=== PATIENT | female | born 2000 | race Hispanic/Latino ===

== ENCOUNTER 2025-02-17 13:46 | Emergency (ER) | payer SELFPAY ==
[~2025-02-17] VITALS: Ht 167.6 cm; Wt 51.3 kg
--- NOTE | 2025-02-17 14:00 | ERN ---
ED Note History of Present Illness Stated Complaint: ABNORMAL MENSES Chief Complaint: Vaginal Problems/Bleeding Time Seen by MD: 13:53 Dictation: PATIENT IS A 24-YEAR-OLD FEMALE STATES SHE IS HERE FOR HEAVY VAGINAL BLEEDING WITH CRAMPING ONSET WAS YESTERDAY. SHE STATES SHE HAD HER LAST MENSTRUAL PERIOD LAST MONTH ON THE . STATES SHE IS REGULAR, SHE IS SEXUALLY ACTIVE NO CONTROL. NO PRIMARY CARE Allergies: Coded Allergies: No Known Allergies (Unverified Allergy, Unknown, 02/17/25) Past Medical History Past Medical History: No Pertinent History Surgical History: None LMP: Mar 15, 2025 RN Note Reviewed/Agreed w/PFSH: Yes Review of System Dictation CONSTITUTIONAL: Negative except for HPI HEAD/FACE: Negative except for HPI EENT: Negative except for HPI RESPIRATORY: Negative except for HPI GASTROINTESTINAL/ABDOMINAL: Negative except for HPI GENITOURINARY: Negative except for HPI vaginal bleeding MUSCULOSKELETAL: Negative except for HPI INTEGUMENTARY: Negative except for HPI NEUROLOGICAL/PSYCH: Negative except for HPI HEMATOLOGIC/LYMPHATIC: Negative except for HPI All Systems Negative, Except as noted above. 13 point review of systems assessed and all negative except for above. Initial Vital Sign VS Vital Signs Date Time Temp Pulse Resp B/P (MAP) Pulse Ox O2 Delivery O2 Flow Rate FiO2 02/17/25 13:49 98.2 79 16 139/71 100 Room Air 0 02/17/25 14:20 21 Physical Exam Dictation Vital Signs reviewed General Appearance: Alert, oriented x 3, no acute distress, well developed, nourished. Head and Face: non-traumatic. Eyes: PERRL, pink conjunctivas, eyelid no trauma, anterior chamber with arcus senilis. Ears: Pinnas intact and no signs of trauma or erythema ear canals clear and no discharge TM no erythema Nose: No discharge, no bleeding. Oropharynx: Mouth normal, tongue pink, pharynx clear,no erythema, tonsils no exudates, no abscesses noted, mucous membrane moist Neck: Supple, non-tender, no thyromegaly, no masses, no JVD, no bruits Breast:Deferred Chest:No tenderness, no crepitus, no paradoxical movement, no retractions Lungs:Clear, well-ventilated, symmetric, no rales, no wheezing, no rhonchi, no stridor, good breath sounds bilaterally Heart: Regular rate, regular rhythm, no murmur, no gallops Vascular: no peripheral edema, Abdomen: Soft, positive bowel sounds, nondistended, no guarding, nontender, no rebound, no masses no hepatomegaly, no splenomegaly, no Glaser's sign, no hernias. Rectal: Deferred Genital: Deferred Neurological: Normal speech, motor function intact, sensory function intact Musculoskeletal: Neck nontender, full range of motion, back nontender, full range of motion, Extremities: nontender, full range of motion Skin: Color pink, dry, no turgor, no rash, no lacerations, no abrasions, no contusions. Lymphatic: Deferred Results (Laboratory/Radiology) Laboratory/Radiology Laboratory Tests Test 02/17/25 14:08 02/17/25 14:20 White Blood Count 6.1 K/uL (4.8-10.8) Red Blood Count 5.16 MIL/uL (4.00-5.50) Hemoglobin 15.1 g/dL (12.0-16.0) Hematocrit 44.5 % (36-48) Mean Corpuscular Volume 86.2 fL (79-99) Mean Corpuscular Hemoglobin 29.3 pg (27.0-33.0) Mean Corpuscular Hemoglobin Concent 33.9 g/dL (32.0-36.0) Red Cell Distribution Width 12.8 % (11.0-15.5) Platelet Count 288 K/uL (130-400) Mean Platelet Volume 9.5 fL (7.5-10.5) Immature Granulocyte % (Auto) 0.2 % (0-1) Neutrophils (%) (Auto) 63.1 % (40.0-77.0) Lymphocytes (%) (Auto) 26.6 % (21.0-51.0) Monocytes (%) (Auto) 8.9 % (3.0-13.0) Eosinophils (%) (Auto) 1.0 % (0.0-8.0) Basophils (%) (Auto) 0.2 % (0.0-5.0) Neutrophils # (Auto) 3.9 K/uL (1.8-7.7) Lymphocytes # (Auto) 1.6 K/uL (1.0-4.8) Monocytes # (Auto) 0.5 K/uL (0.1-1.0) Eosinophils # (Auto) 0.06 K/uL (0.00-0.70) Basophils # (Auto) 0.01 K/uL (0.00-0.20) Absolute Immature Granulocyte (auto 0.01 K/uL (0-1) Nucleated Red Blood Cells 0.0 % (0.0-0.19) Sodium Level 135 mmol/L (136-145) L Potassium Level 3.6 mmol/L (3.5-5.1) Chloride Level 98 mmol/L (101-111) L Carbon Dioxide Level 29 mmol/L (21-32) Blood Urea Nitrogen 11 mg/dL (7-18) Creatinine 0.6 mg/dL (0.5-1.0) Glomerular Filtration Rate Calc 130 mL/min (>90) Random Glucose 87 mg/dL (70-105) Total Calcium 9.6 mg/dL (8.5-10.1) Urine Color YELLOW (YELLOW) Urine Appearance CLOUDY (CLEAR) H Urine pH 6.0 (5.0-8.0) Urine Specific [place] 1.022 (1.001-1.031) Urine Protein 70 mg/dL (NEGATIVE) H Urine Glucose (UA) NEGATIVE mg/dL (NEGATIVE) Urine Ketones 20 mg/dL (NEGATIVE) H Urine Occult Blood MODERATE (NEGATIVE) H Urine Nitrate NEGATIVE (NEGATIVE) Urine Bilirubin NEGATIVE mg/dL (NEGATIVE) Urine Urobilinogen 0.2 mg/dL (0.2-1.0) Urine Leukocyte Esterase NEGATIVE [place]/uL Urine RBC 2-5 /HPF (0-1) H Urine WBC 2-5 /HPF (0-1) H Urine Squamous Epithelial Cells FEW /HPF (0-2) Urine Bacteria RARE /HPF (None Seen) Urine HCG, Qualitative POSITIVE (NEGATIVE) H 1540/OB ultrasound demonstrate no sac. No ectopic . 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 She will be counseled to avoid alcohol, tobacco no drugs [id number] except for Tylenol and start vitamins until cleared by her stone fabricator doctor. Labs Reviewed?: Yes ED Course ED Course Orders Procedure Category Date Status Time Cbc With Differential LAB 02/17/25 Complete 13:58 ,Urine Test LAB 02/17/25 Complete 13:58 Urinalysis Profile LAB 02/17/25 Complete 13:58 Basic Metabolic Panel LAB 02/17/25 Complete 13:58 Us Ob <14 Weeks US 02/17/25 Taken 14:44 Hcg,Quantitative LAB 02/17/25 Logged 15:17 Vital Signs Date Time Temp Pulse Resp B/P (MAP) Pulse Ox O2 Delivery O2 Flow Rate FiO2 02/17/25 14:20 98.2 79 16 139/71 100 Room Air* 0 21 02/17/25 13:49 98.2 79 16 139/71 100 Room Air 0 Medical Decision Making MDM MDM: Differential diagnosis: UTI/electrolyte imbalance/dehydration/anemia/ectopic Rationale: Tests considered and ordered secondary to shared decision making include: Labs/UA Previous outside records reviewed: Old ER visits. Risk of complication and/or morbidity or mortality of patient management: None Medications-Per medication reconciliation Need for hospitalization: Patient does not meet criteria for hospitalization. No Need for emergency major/minor surgery: No There are no social concerns with this patient. Prescription drug management none Prescriptions will include symptomatic care Patient's prior external medical records from other ER visits were reviewed by me as indicated. Prior testing and results from previous visits were reviewed. Prior tests were taken into account with medical decision making and resource utilization, independent historian/historians were used to obtain complete medical history. I independently interpreted the test that were performed, results were reviewed by me and considered findings on radiology if ordered. Medical management and examination interpretation discussions were had by me with other qualified healthcare professionals as indicated for the patient's care. DX & DISP Disposition: Discharge Departure Impression: Primary Impression: Vaginal bleeding in Condition: Stable Additional Instructions: Follow-up with primary care provider in 1 to 2 days. Take medications as directed here in the emergency room. Okay to continue home medications unless otherwise discussed during your visit in the emergency room today. Return to your nearest emergency room if symptoms worsen or if there is no improvement. Call 911 if you need immediate assistance. Take Tylenol [id number] as needed and if no contraindications are present. Increase oral hydration. A wound culture or urine culture was ordered here in the emergency room department please follow-up with primary care provider and advise them to get repeat ports from our facility. If you had any Darwin wrap/splints that were applied here, please do not remove them until you see your primary care or specialty. Tylenol [id number] for pain. No smoking, no tobacco no [id number] medications he had some Tylenol until cleared by your stone fabricator doctor. Start vitamins/ezru-lnd-[id number] daily with meals. Follow up with a an stone fabricator doctor in the next 1-2 days. Referrals: SELF,REFERRAL (PCP) Time of Disposition: 15:41 I have reviewed the case, and I agree with, Diagnosis and Plan LEA ARAUJO NP Feb 17, 2025 14:00
[2025-02-17 14:19] LABS: IMMATURE GRANULOCYTE ABSOLUTE 0.01 K/uL (0-1); NUCLEATED RED BLOOD CELLS 0.0 % (0.0-0.19); PLATELET COUNT (AUTO) 288 K/uL (130-400); RED BLOOD CELL COUNT(AUTO) 5.16 MIL/uL (4.00-5.50); RED CELL DISTRIBUTION WIDTH 12.8 % (11.0-15.5); WHITE BLOOD COUNT (AUTO) 6.1 K/uL (4.8-10.8)
[2025-02-17 14:32] LABS: CREATININE 0.6 mg/dL (0.5-1.0); GLOMERULAR FILTR. RATE CALC 130.0 mL/min (>90); GLUCOSE,RANDOM 87.0 mg/dL (70-105); SODIUM SERUM 135.0 mmol/L (136-145); UREA NITROGEN, BLOOD 11.0 mg/dL (7-18)
[2025-02-17 14:39] LABS: APPEARANCE,URINE CLOUDY (CLEAR); GLUCOSE, URINE (UA) NEGATIVE (NEGATIVE); LEUKOCYTE ESTERASE ,URINE NEGATIVE Leu/uL (NEGATIVE); NITRATE,URINE NEGATIVE (NEGATIVE); OCCULT BLOOD,URINE MODERATE (NEGATIVE)
[2025-02-17 14:41] LABS: HCG,QUALITATIVE URINE POSITIVE (NEGATIVE)
[2025-02-17 14:45] LABS: ADD UA MICROSCOPIC YES
[2025-02-17 14:50] LABS: SQUAMOUS EPITHELIAL CELL,UR FEW /HPF (0-2)
[2025-02-17 15:43] VITALS: BP 132/74; PULSE 72; RESP 16; TEMP 98.2; O2SAT 100
--- NOTE | 2025-02-17 16:01 | HMCIMG ---
CLINICAL INFORMATION COMPARISON None TECHNIQUE Transabdominal sonography of the pelvis. FINDINGS Uterus: Prominent appearance of the endometrial stripe possibly a reflecting decidual reaction. No gestational sac visualized. Adnexa: The right ovary is not visualized due to overlying bowel gas. Normal left ovary. Free Fluid: No abnormal fluid. IMPRESSION Transabdominal only approach. No gestational sac visualized. Consider repeat examination with transvaginal technique. /[place]
== END 2025-02-17 15:44 | disposition home or self-care (01) ==
LOC: EDH 13:46
DX: O20.9 Hemorrhage in early pregnancy, unspecified (principal); Z3A.01 Less than 8 weeks gestation of pregnancy
CPT/HCPCS: 36415; 76801; 80048; 81001; 81025; 84702; 85025; 99284